=== PATIENT | female | born 1945 | race Caucasian/White ===

== ENCOUNTER 2020-11-09 20:46 | Inpatient (IN) | payer BC, MEDICARE ==
[~2020-11-09 20:46] MED LIST: Iopamidol-370 76% 500 ML 1 ML ONE
[2020-11-09] MEDS ORDERED: Rocuronium Bromide 10 MG/ML (10ML VIAL) ONE (20:50)
[2020-11-09] MEDS ORDERED: Dextrose 50% Abboject 50 ML SYRINGE ONE (20:53)
[2020-11-09] MEDS ORDERED: Norepinephrine 8 MG/0.9% NS 250 ML ONE (21:02)
[2020-11-09] MEDS ORDERED: Fentanyl CADD 100 ML IV SCH (21:15)
[2020-11-09 21:25] LABS: Actual Bicarbonate (HCO3a) 4.3 mEq/L (22-28); Analyzer IN Cardio ER; Base Excess (BEa) -26.2 mEq/L (-2.0 to +3.0); Calcium, Ionized (arterial) 0.68 mmol/L (1.12-1.30); Carboxyhemoglobin (COHb) 0.6 gm% (0.0-3.0); O2 Tension (PaO2), arterial 108.3 mmHg (> 70.0); Potassium - ABG Lab 3.28 mmol/L (3.70-5.30)
[2020-11-09] MEDS ORDERED: Sodium Bicarb 50 MEQ/50 ML Abboject 8.4% SYRINGE ONE (21:30)
[2020-11-09 22:20] LABS: Bacteria/HPF 3+ HPF (None Seen); Bilirubin Negative (Negative); Blood, Urine 2+ (Negative); Clarity Turbid (Clear); Glucose, Urine (Dipstick) 200 mg/dL (Negative); Ketone, Urine Negative (Negative); Leukocyte Negative Leu/uL (Negative); Nitrite Negative (Negative); Protein, Urine (Dipstick) 300 mg/dL (Neg-Trace); Specific Gravity, Urine 1.017 (1.002-1.036); Transitional Epithelial 0-3 HPF (None Seen); Urobilinogen Normal mg/dL (Less than 2)
[2020-11-09 22:24] LABS: Hemoglobin 8.3 g/dL (12.0-16.0); Mean Corpuscular HGB CONC 31.8 g/dL (32.0-36.0); Mean Corpuscular Hemoglobin 29.8 pg (27.0-31.0); Mean Corpuscular Volume 93.7 fL (78.0-98.0); Mean Platelet Volume 7.2 fL (7.4-10.4); Platelet Count 163 thou/uL (130-400); RBC Distribution Width 14.3 % (11.5-14.5); Red Blood Cell (RBC) Count 2.79 mill/uL (4.20-5.40); White Blood Cell (WBC) Count 10.1 thou/uL (4.8-10.8)
[2020-11-09 22:27] LABS: Amphetamine Not Detected (NotDetected); Barbiturates Screen Not Detected (NotDetected); Benzodiazepine Screen Not Detected (NotDetected); Cocaine Metabolite Screen Not Detected (NotDetected); Medtox Control Line Valid? VALID (VALID); Medtox Reader # READER 4; Methadone Not Detected (NotDetected); Methamphetamine Not Detected (NotDetected); Opiate Screen Not Detected (NotDetected); Oxycodone Screen Detected (NotDetected); Phencyclidine (PCP) Not Detected (NotDetected); THC/Cannabinoid Screen Not Detected (NotDetected); Tricyclic Screen Not Detected (NotDetected)
[2020-11-09 22:33] LABS: INR-International Normal Ratio 1.7; Prothrombin Time 20.7 sec (12.0-14.7)
[2020-11-09 22:34] LABS: PTT 59.6 sec (22.9-36.1)
[2020-11-09 22:38] LABS: ALT (SGPT) 332 U/L (8-55); AST (SGOT) 423 U/L (5-34); Albumin 1.7 g/dL (3.4-4.8); Alkaline Phosphatase 218 U/L (40-110); Anion Gap 24 mmol/L (10-20); BUN (Urea Nitrogen) 48 mg/dL (9.8-20.1); Bilirubin, Total 0.3 mg/dL (0.2-1.2); CK (CPK) 101 U/L (29-168); Calc. Creatinine Clearance 0 mL/min (70-130); Calcium 6.1 mg/dL (7.8-10.44); Carbon Dioxide 13 mmol/L (23-31); Chloride 110 mmol/L (98-107); Globulin 1.5 g/dL (2.4-3.5); Glucose 296 mg/dL (83-110); Lipase 33 U/L (8-78); Potassium 5.8 mmol/L (3.5-5.1); Protein, Total 3.2 g/dL (5.8-8.1); Sodium 141 mmol/L (136-145)
[2020-11-09 22:40] LABS: Band 25 % (5-11); Lymphocytes 4 % (21-51); MDiff Complete? YES; Metamyelocyte 1 % (0-0); Neutrophil 70 % (42-75)
[2020-11-09 22:44] LABS: Acetaminophen Less than 6.0 mcg/mL (10.0-30.0); Alcohol Less than 10 mg/dL (Less than 10); Salicylate Less than 8.0 mg/dL (15.0-30.0)
[2020-11-09 22:47] LABS: SARS-CoV-2 NAA Rapid Test Not Detected (NotDetected)
[2020-11-10 00:12] LABS: Hemoglobin (Hb) 5.3 g/dL (12.0-16.0); Puncture Site RBA; pH, Arterial 6.89 (7.35-7.45)
[2020-11-10 00:24] LABS: Critical Call Chem-Lactate DECREASING
[2020-11-10 01:23] LABS: Hemoglobin 9.8 g/dL (12.0-16.0); Mean Corpuscular HGB CONC 31.8 g/dL (32.0-36.0); Mean Corpuscular Hemoglobin 29.7 pg (27.0-31.0); Mean Corpuscular Volume 93.5 fL (78.0-98.0); Mean Platelet Volume 7.4 fL (7.4-10.4); Platelet Count 169 thou/uL (130-400); RBC Distribution Width 14.4 % (11.5-14.5)
[2020-11-10 01:40] LABS: Band 27 % (5-11); Lymphocytes 9 % (21-51); MDiff Complete? YES; Metamyelocyte 4 % (0-0); Monocytes 5 % (0-10); Myelocyte 1 % (0-0); Neutrophil 54 % (42-75)
[2020-11-10] MEDS ORDERED: Sodium Chloride 0.9% 1,000 ML IV SCH ×2 (02:45→06:15)
[2020-11-10] MEDS ORDERED: Norepinephrine 8 MG/0.9% NS 250 ML IVPB SCH (02:45)
[2020-11-10] MEDS ORDERED: Cefepime 1 GM in Sodium Chloride 0.9% 100 ML IVPB SCH (03:00)
[2020-11-10] MEDS ORDERED: VANCOMYCIN 1.25 GM/250 ML BAG 1.25 GM in Premix Bag 1 BAG IVPB SCH (04:00)
[2020-11-10 04:48] LABS: Actual Bicarbonate (HCO3a) 13.7 mEq/L (22-28); Base Excess (BEa) -8.6 mEq/L (-2.0 to +3.0); Calcium, Ionized (arterial) 0.88 mmol/L (1.12-1.30); Carboxyhemoglobin (COHb) 0.6 gm% (0.0-3.0); Hemoglobin (Hb) 12.2 g/dL (12.0-16.0); pH, Arterial 7.43 (7.35-7.45)
[2020-11-10 04:50] LABS: CO2 Tension 21.1 mmHg (35.0-45.0)
[2020-11-10 04:50] LABS: Hemoglobin 12.3 g/dL (12.0-16.0); Mean Corpuscular HGB CONC 31.4 g/dL (32.0-36.0); Mean Corpuscular Volume 92.2 fL (78.0-98.0); Mean Platelet Volume 7.5 fL (7.4-10.4); Platelet Count 236 thou/uL (130-400); RBC Distribution Width 14.8 % (11.5-14.5); Red Blood Cell (RBC) Count 4.24 mill/uL (4.20-5.40); White Blood Cell (WBC) Count 7.1 thou/uL (4.8-10.8)
[2020-11-10 04:51] LABS: Puncture Site RFA
[2020-11-10 04:52] LABS: ALV-art Gradient 402.325 mmHg (0-20)
[2020-11-10 04:54] LABS: INR-International Normal Ratio 1.5; PTT 49.6 sec (22.9-36.1); Prothrombin Time 18.3 sec (12.0-14.7)
[2020-11-10] MEDS ORDERED: Ondansetron PF 4 MG/2 ML Vial IVP PRN (04:55)
[2020-11-10] MEDS ORDERED: Ventilator Sedation Protocol 1 EACH FS SCH (05:00)
[2020-11-10 05:01] LABS: Lactic Acid 2.7 mmol/L (0.5-2.2)
[2020-11-10 05:02] LABS: Phosphorus 5.2 mg/dL (2.3-4.7)
[2020-11-10 05:15] LABS: Band 34 % (5-11); Lymphocytes 8 % (21-51); MDiff Complete? YES; Metamyelocyte 5 % (0-0); Monocytes 4 % (0-10); Neutrophil 49 % (42-75)
[2020-11-10] MEDS ORDERED: Sodium Chloride 0.45% 1,000 ML IV SCH (05:15)
[2020-11-10 05:30] LABS: ALT (SGPT) 1680 U/L (8-55); AST (SGOT) 2519 U/L (5-34); Albumin 2.6 g/dL (3.4-4.8); Alkaline Phosphatase 459 U/L (40-110); Anion Gap 17 mmol/L (10-20); BUN (Urea Nitrogen) 51 mg/dL (9.8-20.1); Bilirubin, Total 0.5 mg/dL (0.2-1.2); Calc. Creatinine Clearance 12 mL/min (70-130); Calcium 6.6 mg/dL (7.8-10.44); Carbon Dioxide 17 mmol/L (23-31); Chloride 117 mmol/L (98-107); Globulin 1.8 g/dL (2.4-3.5); Glucose 15 mg/dL (83-110); Magnesium 1.8 mg/dL (1.6-2.6); Potassium 5.7 mmol/L (3.5-5.1); Protein, Total 4.4 g/dL (5.8-8.1); Sodium 145 mmol/L (136-145)
[2020-11-10] MEDS ORDERED: Dextrose 50% Abboject 50 ML SYRINGE ONE ×5 (05:34→14:00)
[2020-11-10] MEDS ORDERED: Dextrose 5% in Water 1,000 ML IV SCH (06:00)
[2020-11-10] MEDS ORDERED: Propofol 1,000 MG/100 ML VIAL IV PRN (06:15)
[2020-11-10] MEDS ORDERED: DISCONTINUE PREVIOUS NARCOTIC PAIN MEDICATIONS AND BENZODIAZEPINES FS SCH (06:15)
[2020-11-10] MEDS ORDERED: Fentanyl BOLUS 250 ML IVPB PRN (06:15)
[2020-11-10] MEDS ORDERED: Fentanyl CADD 100 ML IV SCH (06:15)
[2020-11-10] MEDS ORDERED: Morphine 2 MG/ML VIAL SLOW IVP PRN (06:15)
[2020-11-10] MEDS ORDERED: Sodium Bicarbonate 50 MEQ in Sodium Chloride 0.45% 1,000 ML IV SCH (06:15)
[2020-11-10] MEDS ORDERED: Calcium Gluc 4.6 MEQ/10 ML (100 MG/ML) SLOW IVP SCH (06:15)
[2020-11-10] MEDS ORDERED: Lorazepam 2 MG/ML VIAL SLOW IVP PRN (06:15)
[2020-11-10] MEDS ORDERED: Propofol BOLUS 1,000 MG/100 ML VIAL IV PRN (06:15)
[2020-11-10] MEDS: Pantoprazole 40 MG VIAL IVP SCH (08:21)
[2020-11-10] MEDS ORDERED: Lactated Ringer's 1,000 ML IV SCH (09:15)
[2020-11-10] MEDS ORDERED: fentaNYL Citrate/PF 2,000 MCG in Sodium Chloride 0.9% 60 ML IV PRN (09:38)
[2020-11-10] MEDS: Hydrocortisone Sod Succ/PF 100 mg/2 ml Vial IVP SCH ×3 (09:55→20:45)
[2020-11-10] MEDS ORDERED: Dextrose 5%-Lactated Ringers 1,000 ML IV SCH (10:15)
[2020-11-10 10:22] LABS: Actual Bicarbonate (HCO3a) 13.8 mEq/L (22-28); Base Excess (BEa) -12.8 mEq/L (-2.0 to +3.0); CO2 Tension 34.2 mmHg (35.0-45.0); Calcium, Ionized (arterial) 0.91 mmol/L (1.12-1.30); Carboxyhemoglobin (COHb) 0.9 gm% (0.0-3.0); Hemoglobin (Hb) 9.7 g/dL (12.0-16.0); O2 Tension (PaO2), arterial 211.6 mmHg (> 70.0); Potassium - ABG Lab 5.37 mmol/L (3.70-5.30)
[2020-11-10 10:26] LABS: Puncture Site RRA; pH, Arterial 7.22 (7.35-7.45)
[2020-11-10 10:29] LABS: Critical Call Chem Troponin I RESULT DECREASING; Troponin I 0.948 ng/mL (< 0.028)
[2020-11-10] MEDS: metroNIDAZOLE 500 MG in Premix Bag 1 BAG IVPB SCH ×3 (11:39→23:33)
[2020-11-10] MEDS: Dextrose 5% in Water 1,000 ML IV SCH ×3 (13:21→20:44)
[2020-11-10] MEDS: Norepinephrine 8 MG/0.9% NS 250 ML IVPB PRN (14:12)
[2020-11-10 14:28] LABS: Anion Gap 16 mmol/L (10-20); BUN (Urea Nitrogen) 49 mg/dL (9.8-20.1); Calc. Creatinine Clearance 12 mL/min (70-130); Carbon Dioxide 14 mmol/L (23-31); Chloride 114 mmol/L (98-107); Glucose 75 mg/dL (83-110); Potassium 5.4 mmol/L (3.5-5.1); Sodium 139 mmol/L (136-145)
[2020-11-10] MEDS ORDERED: Sodium Bicarbonate 50 MEQ in Sodium Chloride 0.45% 1,000 ML FS SCH (14:45)
[2020-11-10 15:57] LABS: Critical Call Chem Troponin I RESULT DECREASING; Troponin I 0.738 ng/mL (< 0.028)
[2020-11-10 22:37] LABS: Critical Call Chem Troponin I DECREASING; Troponin I 0.654 ng/mL (< 0.028)
[2020-11-11] MEDS: Dextrose 5% in Water 1,000 ML IV SCH ×3 (00:57→09:46)
[2020-11-11] MEDS: Norepinephrine 8 MG/0.9% NS 250 ML IVPB PRN (03:21)
[2020-11-11] MEDS: Hydrocortisone Sod Succ/PF 100 mg/2 ml Vial IVP SCH ×2 (03:21→09:47)
[2020-11-11 04:50] LABS: Phosphorus 4.8 mg/dL (2.3-4.7)
[2020-11-11 04:57] LABS: ALT (SGPT) 1454 U/L (8-55); AST (SGOT) 2524 U/L (5-34); Albumin 2.2 g/dL (3.4-4.8); Alkaline Phosphatase 494 U/L (40-110); Anion Gap 15 mmol/L (10-20); BUN (Urea Nitrogen) 49 mg/dL (9.8-20.1); Bilirubin, Total 0.7 mg/dL (0.2-1.2); Calc. Creatinine Clearance 12 mL/min (70-130); Carbon Dioxide 15 mmol/L (23-31); Chloride 101 mmol/L (98-107); Globulin 1.5 g/dL (2.4-3.5); Glucose 80 mg/dL (83-110); Magnesium 1.2 mg/dL (1.6-2.6); Potassium 5.8 mmol/L (3.5-5.1); Protein, Total 3.7 g/dL (5.8-8.1); Sodium 125 mmol/L (136-145)
[2020-11-11 04:59] LABS: Calcium 5.8 mg/dL (7.8-10.44)
[2020-11-11] MEDS ORDERED: Cefepime 1 GM in Sodium Chloride 0.9% 100 ML IVPB SCH (05:00)
[2020-11-11 05:23] LABS: Band 28 % (5-11); Hemoglobin 9.5 g/dL (12.0-16.0); Lymphocytes 5 % (21-51); MDiff Complete? YES; Mean Corpuscular HGB CONC 31.8 g/dL (32.0-36.0); Mean Corpuscular Hemoglobin 29.3 pg (27.0-31.0); Metamyelocyte 8 % (0-0); Monocytes 1 % (0-10); Myelocyte 12 % (0-0); Neutrophil 46 % (42-75); Nucleated RBC 1 % (0); Platelet Count 123 thou/uL (130-400); RBC Distribution Width 14.7 % (11.5-14.5); Red Blood Cell (RBC) Count 3.25 mill/uL (4.20-5.40); White Blood Cell (WBC) Count 10.9 thou/uL (4.8-10.8)
[2020-11-11] MEDS: metroNIDAZOLE 500 MG in Premix Bag 1 BAG IVPB SCH ×2 (05:36→12:13)
[2020-11-11 05:50] LABS: Vancomycin, Random Less than 1.1 ug/mL (See Comment)
[2020-11-11] MEDS ORDERED: Vancomycin 1 GM in Premix Bag 1 BAG IVPB SCH (06:15)
[2020-11-11 06:35] VITALS: BMI 19.3
[2020-11-11 07:08] LABS: Calcium, Ionized (arterial) 0.83 mmol/L (1.12-1.30); Carboxyhemoglobin (COHb) 0.9 gm% (0.0-3.0); Hemoglobin (Hb) 10.2 g/dL (12.0-16.0); O2 Tension (PaO2), arterial 127.4 mmHg (> 70.0); Potassium - ABG Lab 5.65 mmol/L (3.70-5.30); pH, Arterial 7.35 (7.35-7.45)
[2020-11-11 07:13] LABS: Puncture Site LRA
[2020-11-11 09:02] LABS: Lactic Acid 3.3 mmol/L (0.5-2.2)
[2020-11-11] MEDS: Pantoprazole 40 MG VIAL IVP SCH (09:47)
[2020-11-11] MEDS ORDERED: Dextrose 5%-Lactated Ringers 1,000 ML IV SCH (10:45)
[2020-11-11] MEDS ORDERED: Magnesium 2 GM/50 ML 2 GM in Premix Bag 1 BAG IVPB PRN (10:51)
[2020-11-11 12:28] VITALS: TEMP 97.7
[2020-11-11] MEDS ORDERED: Dextrose 50% Abboject 50 ML SYRINGE ONE (13:31)
[2020-11-11] MEDS ORDERED: Dextrose 50% Abboject 50 ML SYRINGE IVP PRN (14:00)
[2020-11-11] MEDS ORDERED: Dextrose 50% Abboject 50 ML SYRINGE SLOW IVP SCH (14:00)
[2020-11-11] MEDS ORDERED: Dextrose 5% in Water 1,000 ML IV PRN (14:00)
[2020-11-11] MEDS ORDERED: Dextrose 10% in Water 1,000 ML IV SCH ×2 (14:30→15:00)
[2020-11-11] MEDS ORDERED: Dextrose 5 % And 0.9 % NaCl 1,000 ML IV SCH (14:30)
[2020-11-11] MEDS: Sodium Chloride 0.9% 1,000 ML IV SCH ×2 (15:18→15:32)
[2020-11-11 15:22] LABS: Actual Bicarbonate (HCO3a) 7.6 mEq/L (22-28); Base Excess (BEa) -21.9 mEq/L (-2.0 to +3.0); CO2 Tension 30.3 mmHg (35.0-45.0); Calcium, Ionized (arterial) 0.83 mmol/L (1.12-1.30); Carboxyhemoglobin (COHb) 1.5 gm% (0.0-3.0); Hemoglobin (Hb) 8.8 g/dL (12.0-16.0); Potassium - ABG Lab 6.14 mmol/L (3.70-5.30)
[2020-11-11 15:25] LABS: pH, Arterial 7.02 (7.35-7.45)
[2020-11-11 15:26] LABS: ALV-art Gradient 136.385 mmHg (0-20); O2 Tension (PaO2), arterial 53.9 mmHg (> 70.0); Puncture Site RBA
[2020-11-11] MEDS ORDERED: Sodium Bicarb 50 MEQ/50 ML Abboject 8.4% SYRINGE IVP SCH ×3 (15:45→15:55)
[2020-11-11] MEDS ORDERED: Sodium Bicarbonate 150 MEQ in Dextrose 5% in Water 1,000 ML IV SCH (15:45)
[2020-11-11] MEDS ORDERED: Lorazepam 2 MG/ML VIAL SLOW IVP PRN ×2 (16:08)
[2020-11-11] MEDS ORDERED: Fentanyl 100 MCG/2 ML VIAL SLOW IVP PRN (16:10)
[2020-11-11] MEDS ORDERED: Morphine 4 MG/ML VIAL SLOW IVP PRN ×2 (16:11→16:15)
== END 2020-11-11 18:16 | disposition expired | DRG 871 ==
LOC: ERS 20:46 → CCU 11-10 01:44
PROVIDERS: ADMIT Family Medicine; ATTEND Family Medicine
PROC: 3E033XZ Introduction of Vasopressor into Peripheral Vein, Percutaneous Approach (ICD-10-PCS; principal; 2020-11-10)
PROC: 0BH17EZ Insertion of Endotracheal Airway into Trachea, Via Natural or Artificial Opening (ICD-10-PCS; 2020-11-10)
PROC: 02HV33Z Insertion of Infusion Device into Superior Vena Cava, Percutaneous Approach (ICD-10-PCS; 2020-11-10)
PROC: B548ZZA Ultrasonography of Superior Vena Cava, Guidance (ICD-10-PCS; 2020-11-10)
PROC: 5A1935Z Respiratory Ventilation, Less than 24 Consecutive Hours (ICD-10-PCS; 2020-11-10)
PROC: 0D9670Z Drainage of Stomach with Drainage Device, Via Natural or Artificial Opening (ICD-10-PCS; 2020-11-10)
DX: A41.9 Sepsis, unspecified organism (principal); I21.A1 Myocardial infarction type 2; J96.01 Acute respiratory failure with hypoxia; G93.41 Metabolic encephalopathy; R65.21 Severe sepsis with septic shock; N17.9 Acute kidney failure, unspecified; K55.9 Vascular disorder of intestine, unspecified; N39.0 Urinary tract infection, site not specified; Z68.1 Body mass index [BMI] 19.9 or less, adult; E44.0 Moderate protein-calorie malnutrition; E87.2 Acidosis; Z66 Do not resuscitate; Z51.5 Encounter for palliative care; E78.5 Hyperlipidemia, unspecified; I10 Essential (primary) hypertension; I73.9 Peripheral vascular disease, unspecified; Z98.84 Bariatric surgery status; E87.5 Hyperkalemia; D63.8 Anemia in other chronic diseases classified elsewhere; E88.09 Other disorders of plasma-protein metabolism, not elsewhere classified; Z88.0 Allergy status to penicillin; I35.0 Nonrheumatic aortic (valve) stenosis; E16.2 Hypoglycemia, unspecified; E83.51 Hypocalcemia; Z88.5 Allergy status to narcotic agent; Z20.822 Contact with and (suspected) exposure to COVID-19; Z78.1 Physical restraint status
CPT/HCPCS: 31500; 36415; 36416; 36556; 36600; 51702; 70450; 71045; 71275; 74174; 74176; 80053; 80202; 80306; 80307; 81003; 81015; 82140; 82274; 82533; 82550; 82553; 82805; 83605; 83690; 83735; 83880; 84100; 84443; 84484; 85007; 85025; 85027; 85610; 85730; 86850; 86900; 86901; 87040; 93005; 93306; 94002; 94003; 96361; 96365; 96366; 96375; 99292; C9113; J0692; J1720; J2001; J2060; J2270; J3010; J3370; J3490; J7070; P9045; Q9967; U0002